=== PATIENT | female | born 1980 | race Two or more races ===

== ENCOUNTER 2023-12-28 15:17 | Emergency (ER) | payer MEDICAID, OTHER ==
[~2023-12-28] VITALS: Ht 157.5 cm; Wt 86.0 kg
[2023-12-28 16:03] VITALS: BP 133/84; PULSE 107; RESP 18; TEMP 98.6; O2SAT 96
[2023-12-28 16:38] LABS: Urine Amorphous Crystal FEW /hpf (None Seen); Urine Bacteria FEW /hpf (None Seen); Urine Blood 1+ /uL (Negative); Urine Clarity Turbid (Clear); Urine Color Light-Brown (Yellow); Urine Protein, UAD Negative (Negative); Urine Specific Gravity 1.006 (1.001-1.035); Urine Urobilinogen Normal (Negative); Urine WBC 121 /hpf (0 - 5)
[2023-12-28] MEDS ORDERED: BACDST PO (16:51)
[2023-12-28] MEDS ORDERED: IBUP-1456 PO (16:51)
== END 2023-12-28 17:01 | disposition home or self-care (01) ==
LOC: ER 15:17
DX: N39.0 Urinary tract infection, site not specified (principal)
CPT/HCPCS: 81001